=== PATIENT | female | born 1970 | race Caucasian/White ===

== ENCOUNTER → 2019-08-18 | Outpatient (CLI) | payer OTHER ==
--- NOTE | 2019-08-18 14:10 | RAD ---
EXAMINATION: Ultrasound-guided left breast biopsy, diagnostic left breast mammogram CLINICAL INDICATION: Suspicious left breast mass. COMPARISON: Left breast diagnostic mammogram and ultrasound 08/02/2019 FINDINGS/TECHNIQUE: Ultrasound-guided left breast biopsy: The purpose of the procedure and risks and benefits were discussed with the patient. Informed consent was obtained. A timeout was performed. The mass in the left breast at 8:00, 7 cm from the nipple was identified under ultrasound. The overlying skin was marked, prepped, and draped in standard sterile fashion. Skin and subcutaneous soft tissue was anesthetized with 1 percent lidocaine. A small skin soraida was made. Using continuous ultrasound guidance, six 1.5 cm 14-gauge biopsy samples were obtained using a coaxial 14-gauge Bard biopsy device. The samples were placed in formalin and sent to the laboratory for analysis. A biopsy clip was deployed in the mass under ultrasound guidance. The introducer was removed. Pressure was held to achieve hemostasis. Skin was cleansed and covered with a sterile dressing. The patient tolerated the procedure well and was sent for mammography in stable condition. Post clip diagnostic left breast mammogram: CC and ML views of the left breast were obtained. There are scattered areas of fibroglandular density. The biopsy clip is immediately adjacent to the mass on CC view and 5 mm posterior to the mass on ML view of at 8:00, 7 cm from the nipple. IMPRESSION: 1. Technically successful biopsy of left breast mass. 2. Appropriate position of postbiopsy clip. Electronically signed by: Pamela Ramirez MD (08/18/2019 2:07 PM) [id number]
--- NOTE | 2019-08-22 16:06 | PATHOLOGY ---
[facility] Accession Number: [id number] . 01 Material submitted: . breast - LEFT BREAST 8:00 7CFN. Modifiers: left, 8:00 . 01 Clinical history: . Left breast mass . 02 Diagnosis: Breast tissue, left breast mass 8:00 needle biopsies: - INVASIVE DUCTAL CARCINOMA, HISTOLOGIC GRADE 1-2. SEE COMMENT. - DUCTAL CARCINOMA IN SITU, LOW-GRADE, CRIBRIFORM TYPE. (JPM:sarbjit; 08/22/2019) [facility] [place] 1511 Local . 02 Comment: Sections of the left breast mass at 8:00 needle biopsy reveal an invasive mammary carcinoma. The tumor shows moderate tubule formation. The tumor shows mild to focal moderate nuclear atypia, and modest mitotic activity. There is focal low-grade ductal carcinoma in situ of cribriform type. The invasive carcinoma measures up to 0.8 cm in greatest dimension on the glass slide. There are tumor associated calcifications. There is no lymphovascular tumor invasion. The morphologic findings are supportive of the diagnosis of an invasive ductal carcinoma, histologic grade 1-2 , and focal low-grade ductal carcinoma in situ. Breast prognostic studies will be obtained, the results of which will be reported separately. The case is also examined by Dr. Beck, who concurs with the diagnosis. (JPM:sarbjit; 08/22/2019) . 02 Electronically signed: . Barrie Hernandez MD, Pathologist NPI- [id number] . 01 Gross description: . The specimen is received in formalin, labeled "Ariel, Dori, left breast" and "8oc 7cfn" per requisition. Received are 5 distinct needle cores of pink yellow tissue measuring between 1.4 cm and 1.5 cm in length and 0.1 cm each in diameter which are entirely submitted in A1-A2. Also received are multiple fragments of pink-yellow breast tissue measuring 0.9 x 0.8 x 0.2 cm in aggregate which are entirely submitted in A3. The specimen obtained at 9:40 AM on 08/18/2019 and placed in formalin at 9:43 AM. The cold ischemic time is 3 minutes and the total formalin fixation time is greater than 6 hours but less than 72 hours. (SDY; 08/18/2019) SYU/SYU 08/18/2019 1543 Local . 02 Pathologist provided ICD-10: C50.912, D05.12 . 02 CPT . 708470 Specimen Comment: A courtesy copy of this report has been sent to [phone], [phone] Specimen Comment: [phone] Specimen Comment: Report sent to / DR NGUYỄN Performed at: 01 [facility] [address], [place] [id number] MD José Luis Johnson MD Phone: [phone] Performed at: 02 [facility] [address] [place], [place] [id number] MD Barrie Hernandez MD Phone: [phone]
== END | disposition home or self-care (01) ==
LOC: US 08:01
PROVIDERS: ATTEND Nurse Practitioner Family
DX: N63.20 Unspecified lump in the left breast, unspecified quadrant (principal); C50.312 Malignant neoplasm of lower-inner quadrant of left female breast
CPT/HCPCS: 19083; 77065; 88305; 88361; C1713; 19081; 76942